=== PATIENT | male | born 1975 | race Caucasian/White ===

== ENCOUNTER 2017-06-28 05:38 | Emergency (ER) | payer OTHER ==
[2017-06-28 05:49] VITALS: BP 137/84
[2017-06-28] MEDS ORDERED: DEXAMETHASONE 10 MG/ML VIAL PO STA (05:52)
[2017-06-28] MEDS ORDERED: KETOROLAC 60 MG/2 ML VIAL IM STA (05:52)
[2017-06-28] MEDS ORDERED: PSEUDOEPHEDRINE 30 MG TABLET PO STA (05:52)
--- NOTE | 2017-06-28 05:57 | ED Physician Documentation ---
PD HPI URI - Stated complaint Stated Complaint: SORE THROAT - Chief complaint Chief Complaint: General - History obtained from History obtained from: Patient - History of Present Illness Timing - onset: How many days ago (2) Timing details: Gradual onset, Still present Associated symptoms: Fever, Chills, Sweats, Ear pain, Nasal congestion, Sinus pain, Sore throat Similar symptoms before: Has not had sx before Recently seen: Not recently seen - Additional information Additional information: Patient is a 42 year old male with no significant past medical history who is presenting to the emergency department for sore throat, ear pain, fevers, chills and sweats. Patient states that his symptoms started a couple of days ago and have persisted. 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 Review of Systems Constitutional: reports: Fever, Chills, Myalgias Eyes: denies: Decreased vision, Photophobia Ears: reports: Ear pain. denies: Drainage/discharge, Tinnitus/ringing Nose: reports: Rhinorrhea / runny nose, Congestion, Sinus pressure / pain Throat: reports: Sore throat Cardiac: denies: Chest pain / pressure, Palpitations Respiratory: denies: Dyspnea, Cough, Wheezing GI: denies: Nausea, Vomiting : reports: Reviewed and negative Skin: denies: Rash, Lesions Musculoskeletal: denies: Neck pain, Back pain, Extremity pain Neurologic: denies: Generalized weakness, Focal weakness Immunocompromised: denies: Immunocompromised PD PAST MEDICAL HISTORY - Past Medical History Past Medical History: No Cardiovascular: None Respiratory: None Neuro: None Endocrine/Autoimmune: None GI: None : None HEENT: None Psych: None Musculoskeletal: None Derm: None - Past Surgical History Past Surgical History: Yes General: Hiatal hernia repair Ortho: Other HEENT: Tonsil/Adenoidectomy - Allergies Allergies/Adverse Reactions: Allergies Allergy/AdvReac Type Severity Reaction Status Date / Time No Known Drug Allergies Allergy Verified 06/28/17 05:49 - Social History Does the pt smoke?: Yes Smoking Status: Current every day smoker Does the pt drink ETOH?: Yes Does the pt have substance abuse?: No - Immunizations Immunizations are current?: Yes - POLST Patient has POLST: No PD ED PE NORMAL - Vitals Vital signs reviewed: Yes - General General: Alert and oriented X 3, Well developed/nourished - HEENT HEENT: Atraumatic, PERRL - Neck Neck: Supple, no meningeal sign, No JVD - Cardiac Cardiac: RRR, No murmur - Respiratory Respiratory: No respiratory distress, Clear bilaterally - Abdomen Abdomen: Soft, Non tender, Non distended - Derm Derm: Normal color, Warm and dry, No rash - Extremities Extremities: No deformity, Normal ROM s pain - Neuro Neuro: Alert and oriented X 3, No motor deficit, No sensory deficit, Normal speech Eye Opening: Spontaneous Motor: Obeys Commands Verbal: Oriented GCS Score: 15 - Psych Psych: Normal mood PD ED PE EXPANDED - General General: Alert - HEENT HEENT: R TM red, L TM red, Nasal congestion, Moist mucous membranes, Pharyngeal erythema, Swollen tonsils. No: Tonsillar exudate, Soft palate petecchiae, CEMENTER HAND Results - Vitals Vitals: Vital Signs - 24 hr 06/28/17 05:46 Temperature 36.9 C Heart Rate 84 Respiratory 16 Rate Blood Pressure 137/84 H O2 Saturation 100 Oxygen O2 Source Room air - Labs Labs: Laboratory Tests 06/28/17 05:45 Group A Strep Rapid Negative PD MEDICAL DECISION MAKING - ED course Complexity details: reviewed old records, reviewed results, re-evaluated patient , considered differential, d/w patient ED course: Patient was seen and examined at bedside. patient's vital signs were within normal limits. rapid strep was performed and negative. Patient was treated with toradol, decadron and psuedophed. Patient's symptoms were likely viral in nature. Patient required no further work up and was stable for discharge with outpatient follow up. Departure - Departure Disposition: 01 Home, Self Care Clinical Impression: Upper respiratory infection, viral Condition: Good Instructions: ED URI Viral Follow-Up: KATHERINE OCHOA MD [Primary Care Provider] - Comments: Your diagnostics today were within normal limits. Your symptoms are likely viral in nature and should be self limited. You can take over the counter cold and flu medications. You should stay well hydrated drinking 80-100oz of water/ gatorade. You should try to get plenty of rest. You should make sure you partake in adequate hand washing especially if you are going to be traveling and around multiple people. You should follow up with your doctor if your symptoms persist for more than the next 3-5 days. You may return to the emergency department at any time for new, worsening or uncontrollable symptoms. Forms: Activity restrictions
[2017-06-28] MEDS ORDERED: KETOROLAC 60 MG/2 ML VIAL ONE (06:05)
[2017-06-28] MEDS ORDERED: PSEUDOEPHEDRINE 30 MG TABLET PO ONE (06:05)
[2017-06-28] MEDS ORDERED: DEXAMETHASONE 10 MG/ML VIAL ONE (06:05)
[2017-06-28] MEDS ORDERED: CHERRY SYRUP 10 ML UDC PO ONE (06:06)
[2017-06-28 06:10] LABS: RAPID STREP SCREEN REAGENT QC YELLOW (YELLOW)
== END 2017-06-28 06:32 | disposition home or self-care (01) ==
LOC: ED 05:38
DX: J06.9 Acute upper respiratory infection, unspecified (principal); B34.9 Viral infection, unspecified; F17.200 Nicotine dependence, unspecified, uncomplicated
CPT/HCPCS: 87070; 87430; 96372; 99283; A9270

== ENCOUNTER 2019-08-24 09:28 | Outpatient (CLI) | payer OTHER ==
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
== END 2019-08-24 09:29 | disposition home or self-care (01) ==
LOC: DI 09:28
PROVIDERS: ATTEND Chiropractor
DX: M51.37 Other intervertebral disc degeneration, lumbosacral region (principal); M47.817 Spondylosis without myelopathy or radiculopathy, lumbosacral region; M47.816 Spondylosis without myelopathy or radiculopathy, lumbar region; M51.34 Other intervertebral disc degeneration, thoracic region
CPT/HCPCS: 72070; 72100